=== PATIENT | female | born 1965 | race Two or more races ===

== ENCOUNTER 2017-01-02 06:58 | Day surgery (SDC) | payer OTHER ==
[~2017-01-02] VITALS: Ht 147.3 cm; Wt 71.5 kg
[~2017-01-02 06:58] MED LIST: ALBU8.5H3 INH; ASPI81TA3 PO; ATOR10TA65 PO; GLIM4TAB PO; IBUP-1542 PO; LISI2.5T59 PO; METF-405 PO; OLOP2.5D5 OP; SITA50TA2 PO
[2017-01-02 08:08] VITALS: Ht 147.3 cm; Wt 71.5 kg
[2017-01-02] MEDS ORDERED: IBUP800T25 PO (08:21)
[2017-01-02] MEDS ORDERED: SITA50TA2 PO (08:21)
[2017-01-02] MEDS ORDERED: CILO50TA PO (08:21)
[2017-01-02] MEDS ORDERED: OMEP40CA6 PO (08:21)
[2017-01-02] MEDS ORDERED: METF500T4 PO (08:21)
[2017-01-02] MEDS ORDERED: AZEL6DRO2 BOTH EYES (08:21)
[2017-01-02 08:38] VITALS: BP 110/72; PULSE 85; RESP 16
[2017-01-02] MEDS ORDERED: FENTAnyl 50 MCG/ML VIAL ONE (09:19)
[2017-01-02] MEDS ORDERED: MIDAZOLAM 1 MG/ML 2 ML INJ ONE ×2 (09:19)
[2017-01-02 09:41] VITALS: BP 100/64; PULSE 82
--- NOTE | 2017-01-02 10:34 | GILP ---
DATE OF PROCEDURE: 01/02/2017 NAME OF PROCEDURES: 1. Esophagogastroduodenoscopy and biopsy. 2. Colonoscopy. SURGEON: Deirdre Evans MD PREOPERATIVE DIAGNOSES: 1. Abdominal pain. 2. Chronic heartburn. 3. Screening colonoscopy. POSTOPERATIVE DIAGNOSES: 1. Gastroesophageal reflux disease. 2. Gastritis with erosions. 3. Gastric mucosal biopsies were taken for Helicobacter pylori test. 4. Colonoscopy all the way to the cecum. 5. Diverticulosis of the colon. 6. Internal hemorrhoids. 7. No colon neoplasm was identified. INDICATION FOR THE PROCEDURE: Ms. Judy Arguelles is a 51-year-old female patient who had upper abd ominal pain and chronic heartburn, not responding to therapy. She also needed screening colonoscopy . The procedures and possible complications are well explained to the patient, she understood and cons ented to the procedure. DESCRIPTION OF PROCEDURE: Under the influence of fentanyl and Versed, the gastroscope was carefully introduced into the esophagus and under direct vision, it was advanced to the stomach and through t he pylorus into the duodenal bulb and descending duodenum. FINDINGS: ESOPHAGUS: The patient had gastroesophageal reflux disease. STOMACH: She had gastritis with erosions. Gastric mucosal biopsies were taken for H. pylori test. DUODENUM: Normal. The colonoscope was carefully introduced in the rectum and under direct vision, it was advanced all the way to the cecum. FINDINGS: The patient had diverticulosis of the colon. She also had internal hemorrhoids. No colo n neoplasm was identified. She tolerated the procedures very well and there was no complication from the procedures. At the en d of the procedures, she was awake with stable vital signs and she was discharged home to the care o f her family. IMPRESSION: Please see postoperative diagnoses. PLAN: 1. Omeprazole 40 mg p.o. q.a.m. 2. Await H. pylori test report. 3. High fiber diet. 4. Next screening colonoscopy in 10 years. Dictated By: DEIRDRE TOPETE/JENNYFER Conf#: [id number] DID#: [id number] CC: DEIRDRE EVANS MD;*EndCC*
== END 2017-01-02 11:50 | disposition home or self-care (01) ==
LOC: GIL 06:58
PROVIDERS: ATTEND Internal Medicine Gastroenterology
DX: Z12.11 Encounter for screening for malignant neoplasm of colon (principal); K21.9 Gastro-esophageal reflux disease without esophagitis; K29.60 Other gastritis without bleeding; K57.90 Diverticulosis of intestine, part unspecified, without perforation or abscess without bleeding; K64.8 Other hemorrhoids; E11.9 Type 2 diabetes mellitus without complications
CPT/HCPCS: 43239; 45378; 82962; 87081; J2250; J3010; Z7610

== ENCOUNTER 2017-03-28 02:44 | Inpatient (IN) | payer OTHER ==
[2017-03-28] VITALS (10 sets, daily range): BP systolic 117–129; BP diastolic 61–67; PULSE 78–94; RESP 16–20; Ht 149.9 cm; Wt 73.2 kg
[~2017-03-28] VITALS: Ht 149.9 cm; Wt 73.2 kg
[~2017-03-28 02:44] MED LIST changes: +AZEL6DRO2 BOTH EYES; +CILO50TA PO; -GLIM4TAB PO; -IBUP-1542 PO; +IBUP800T25 PO; -LISI2.5T59 PO; -METF-405 PO; +METF500T4 PO; -OLOP2.5D5 OP; +OMEP40CA6 PO
[2017-03-28] MEDS ORDERED: ALBU8.5H3 INH (05:12)
[2017-03-28] MEDS ORDERED: METF1000 PO (05:12)
[2017-03-28] MEDS ORDERED: SITA50TA2 PO (05:12)
[2017-03-28] MEDS ORDERED: OMEP20CA16 PO (05:12)
[2017-03-28] MEDS ORDERED: CILO100T PO (05:12)
[2017-03-28] MEDS ORDERED: ASPI-664 PO (05:12)
[2017-03-28] MEDS ORDERED: [UNRECOGNIZED DRUG - REMARK] BOTH EYES (05:12)
[2017-03-28] MEDS ORDERED: ONDANSETRON 4 MG INJ IV PRN (07:30)
[2017-03-28] MEDS ORDERED: NACL 0.9% 3 ML SYG IV SCH (07:30)
--- NOTE | 2017-03-28 08:16 | HP ---
Date/Time of Note Date/Time of Note DATE: 03/28/17 TIME: 08:01 Assessment/Plan VTE Prophylaxis VTE Prophylaxis Intervention: SCD's Lines/Catheters IV [facility]ter Type [facility]from [facility]): Saline Lock Urinary Cath still in place: No Assessment/Plan Chief Complaint/Hosp Course This is a 51-year-old female being admitted to the telemetry floor for: #1 left-sided weakness/facial numbness: Rule out stroke versus other cerebrovascular etiology versus complex migraine. CAT scan of the head was unremarkable at the outside facility. The current time will order an MRI of the brain, carotid Dopplers. Will consult neurology. Further imaging studies as per neurology recommendations. Continue aspirin. PT/OT evaluation. Will check a bedside swallow eval and then resume low carbohydrate diet. #2 diabetes mellitus: Check swallow eval. And then resume low carbohydrate diet. Continue insulin sliding scale. Hold oral home medication. #3 anemia: Hemoglobin of 9.9 with an MCV of 70. Will check iron studies. Patient likely will need iron supplements on discharge. #4 peripheral vascular disease: Resume cilostazol when patient resumes diet. #5 DVT and GI prophylaxis: SCDs, Protonix Further treatment strategy as per the clinical course Problems: HPI/ROS Admit Date/Time Admit Date/Time Mar 28, 2017 at 04:05 Hx of Present Illness Chief complaint: Left-sided weakness and facial numbness 3 days This is a 51-year-old female who presents to the ED at the outside facility with left-sided weakness 3 days. Patient also states that she had left-sided facial numbness as well. She states that this is gradually worsened over the last 3 days. She denies any chest pain or shortness of breath denies any fevers or vomiting. In the past she had a TIA. Patient also states that she had a headache. Allergies: NKDA Medications: Albuterol inhaler aspirin Cilostazol Claritin eyedrops Metformin Sitagliptin ROS Const: As per HPI Eyes : No pain discharge or redness or change in visual acuity ENT: No pain, sore throat, congestion, congestion, dysphagia or discharge Respiratory: No shortness of breath, cough, sputum, wheezing, or pleuritic pain Cardiovascular: No chest pain, palpitation, PND, or edema GI : no change in appetite, abdominal pain, nausea, vomiting, diarrhea, constipation, or change in the color his stool Genitourinary: No dysuria, hematuria, flank pain , discharge or CVA tenderness Musculoskeletal: No joint pain, back pain, neck pain, restricted range of motion in neck or joints Skin: No rash, bruising or hives Neuro: As per HPI Endocrine: No polyuria, polydipsia, temperature intolerance Psych: No hallucination, depression, anxiety or suicidal ideation PMH/Family/Social Past Medical History Arthritis, diabetes mellitus, previous TIA, PVD Past Surgical History Past Surgical Hx: no surgical history Family History Significant Family History: heart disease, diabetes Social History Alcohol Use: none Smoking Status: Never smoker Drug Use: none Exam/Review of Systems Vital Signs Vitals Vital Signs Date Time Temp Pulse Resp B/P Pulse Ox O2 Delivery O2 Flow Rate FiO2 03/28/17 07:45 98.1 87 18 122/66 98 Exam Exam General: Patient is a obese female laying in bed in no acute distress HEENT: Atraumatic, normocephalic. The pupils are equal, round and reactive. Extraocular motor are intact Neck: Supple with full range of motion. No rigidity or meningismus Chest: Nontender Lungs: Clear to auscultation bilaterally no crackles rales or wheezing Heart: Normal S1-S2, Regular rhythm and rate. No murmur, S3, or S4 Abdomen: Soft , nontender, nondistended , bowel sounds are present. No guarding no rebound tenderness , No masses or organomegaly. No costovertebral temporal angle mass Extremities: Normal to inspection, no edema no cyanosis Neurologic: Normal mental status, speech normal, cranial nerves II through XII are intact, motor and sensory are intact, mild weakness of the left side of the bilateral upper and lower extremities compared to the right, Additional Comments Pertinent laboratory findings from transfer facility: CAT scan: Was unremarkable Hemoglobin 9.9 with an MCV of 70 Please see transfer documentation for all other laboratory and imaging reports. Medications Medications Current Medications Sodium Chloride (NS) 1,000 ml @ 70 mls/hr [id number] IV ; Start 03/28/17 at 07:27 Ondansetron HCl (Zofran Inj) 4 mg Q6H PRN IV NAUSEA AND/OR VOMITING; Start at 07:30 Pantoprazole (Protonix Iv) 40 mg DAILY@06 IV ; Start 03/28/17 at 08:00 DIANA BELTRE Mar 28, 2017 08:16 DIANA BELTRE Mar 28, 2017 08:16
[2017-03-28] MEDS: SOD CHLORIDE 0.9% 1,000 ML IV SCH ×2 (10:19→20:46)
[2017-03-28] MEDS: PANTOPRAZOLE 40 MG INJ IV SCH (10:19)
[2017-03-28] MEDS ORDERED: NAPR-260 PO (10:37)
[2017-03-28] MEDS ORDERED: NIT4 SL (10:39)
--- NOTE | 2017-03-28 10:47 | CONS ---
Date/Time of Note Date/Time of Note DATE: 03/28/17 TIME: 10:39 Assessment/Plan Assessment/Plan Chief Complaint/Hosp Course 51 yo female with hx of DM, HTN, Peripheral vascular disease presenting with left sided numbness over 3 days admitted for ischemic work up. Recommendations: MRI Brain without contrast MRA Head w/o contrast, Duplex ordered continue home medications aspirin and cilostazol check FLP, HBA1C for optimization of secondary stroke risk factors continue tele monitoring ECHO w bubble study anemia work up in progress DVT ppx will request Dr. Hunt to follow over weekend Problems: Consultation Date/Type/Reason Admit Date/Time Mar 28, 2017 at 04:05 Date of Consultation: Mar 28, 2017 Type of Consultation: Neurology Reason for Consultation eval for CVA Referring Provider: DIANA BELTRE Hx of Present Illness 51 year old right handed female with history of diabetes, HTN, peripheral vascular disease currently taking aspirin and cilostazol presents with left sided numbness sensation involving left face arm and leg over the past 3 days. Her symptoms initially involved left side of her face, gradually experienced numbness to her left arm and left leg for the past 2 days. She c/o mild left sided DOOLEY, no visual issues, no dysarthria, no focal weakness, no loss of coordination or vertigo. She has had similar symptoms over 2 years ago that resolved, was dx with a TIA, denies prior hx of CVA. She was tx from [facility] for further evaluation, CTH negative. left sided numbness headache Past Medical History as per HPI Past Surgical History Past Surgical Hx: no surgical history Family History Significant Family History: heart disease, diabetes, hypertension Social History Alcohol Use: none Smoking Status: Never smoker Drug Use: none Exam/Review of Systems Vital Signs Vitals Vital Signs Date Time Temp Pulse Resp B/P Pulse Ox O2 Delivery O2 Flow Rate FiO2 03/28/17 08:27 93 03/28/17 07:45 98.1 18 122/66 98 Exam Constitutional: alert, oriented, well developed Cardiovascular: nl pulses, regular rate and rhythm Neurological: CAKE FROSTER II-XII intact, DTR's symmetric (mild right NLF flattening per daughter this is old (seen on prior pictures of patient as well)), nl mental status, nl speech, nl strength Medications Medications Current Medications Sodium Chloride (NS) 1,000 ml @ 70 mls/hr [id number] IV Last administered on 03/28 10:19; Admin Dose 70 MLS/HR; Start 03/28/17 at 07:27 Ondansetron HCl (Zofran Inj) 4 mg Q6H PRN IV NAUSEA AND/OR VOMITING; Start at 07:30 Pantoprazole (Protonix Iv) 40 mg DAILY@06 IV Last administered on 03/28/17 10: 19; Admin Dose 40 MG; Start 03/28/17 at 08:00 ADRIANO MARTINEZ MD Mar 28, 2017 10:47
[2017-03-28 11:10] LABS: IRON 20 ug/dl (35-150)
[2017-03-28 11:19] LABS: TOTAL IRON BINDING CAPACITY 446 ug/dl (241-421)
[2017-03-28 12:30] LABS: FERRITIN 4.8 ng/ml (11.1-264.0)
--- NOTE | 2017-03-28 13:26 | RADRPT ---
PROCEDURE: US carotid arteries. CLINICAL INDICATION: Dizziness. Left side weakness. TECHNIQUE: Multiple sonographic images of the carotid arteries and vertebral arteries were obtaine d utilizing ozuna scale, duplex, and color-flow imaging. The images were reviewed on a PACS workstati on. COMPARISON: No prior studies are available for comparison. FINDINGS: Evaluation of the right carotid bifurcation region reveals mild atherosclerotic disease. Evaluation of the left carotid bifurcation region reveals mild atherosclerotic disease. There is antegrade flow within the vertebral arteries bilaterally. RIGHT CAROTID MEASUREMENTS: Common Carotid [id number] (cm/sec) Internal Carotid Artery 102 (cm/sec) External Carotid Artery 58 (cm/sec) Vertebral Artery 39 (cm/sec) Internal Carotid/Common Carotid1.3 LEFT CAROTID MEASUREMENTS: Common Carotid [id number] (cm/sec) Internal Carotid Artery 64 (cm/sec) External Carotid Artery 48 (cm/sec) Vertebral Artery 44 (cm/sec) Internal Carotid/Common Carotid0 point a Validated velocity measurements with angiographic measurements. Velocity criteria are extrapolated f rom diameter data as defined by the Society of Radiologists in Ultrasound Consensus Conference. Radi ology 2003; 229;340-346. This study does indirectly reference the measurement of the distal ICA emma meter as the denominator for stenosis measurement. IMPRESSION: 1. Less than 50% stenosis bilaterally in the internal carotid arteries. 2. Normal antegrade flow in the vertebral arteries bilaterally. RPTAT: QQ SRU Consensus Conference Criteria for the Diagnosis of Carotid Artery Stenosis* Degree of Stenosis, % ICA PSV, cm/sec Plaque Estimate, % ICA/CCA PSV Ratio Normal <125 None <2.0 <50 <125 <50 <2.0 50 69 125-230 >50 2.0-4.0 >70 but less than near occlusion >230 >50 <4.0 Near occlusion High, low, or undetectable Visible Variable Total occlusion Undetectable Visible, no detectable lumen Not applicable *Cartoid artery stenosis: ozuna-scale and Doppler US diagnosis. Society of Radiologists in Ultrasound Consensus Conference. Radiology 2003; 229: 340-346 .Kemar Cerrato MD, Date Time Electronically viewed and signed by .Kemar Cerrato MD, on 03/28/2017 13:25 .R/
[2017-03-28] MEDS ORDERED: Discontinue Glyburide, Glipizide, and/or Glimepiride prior to starting Insulin XX ONE (13:30)
[2017-03-28] MEDS ORDERED: HYPOGLYCEMIA PROTOCOL when Glucose is <70 mg/dL or symptomatic <90 mg/dL. XX ONE (13:30)
[2017-03-28] MEDS ORDERED: GLUCOSE GEL 15 GRAM TUBE BUCCAL PRN (14:00)
[2017-03-28] MEDS ORDERED: GLUCOSE GEL 15 GRAM TUBE PO PRN ×2 (14:00)
[2017-03-28] MEDS ORDERED: DEXTROSE 50% 50 ML SYRINGE IV PRN ×2 (14:00)
[2017-03-28] MEDS ORDERED: GLUCAGON 1 MG INJ IM PRN (14:00)
[2017-03-28] MEDS ORDERED: AZELASTINE 0.05% 6 ML OPH BOTH EYES SCH (14:30)
[2017-03-28] MEDS: ASPIRIN (EC) 81 MG TAB PO SCH (16:52)
[2017-03-28] MEDS: CILOSTAZOL 100 MG TAB PO SCH (16:52)
--- NOTE | 2017-03-28 17:07 | RADRPT ---
Echocardiogram Report Patient Name: SHARYN BARROSO Gender: Female Date: 1965 Study Date: 28-Mar-2017 Peanut Vendor: [facility] Location: 5547 Ref. Physician: DIANA BELTRE Quality: Adequate Procedures: Transthoracic echocardiogram with complete 2D, M-Mode, and doppler examination. Indications: Stroke like symptoms. 2D/M Mode Doppler Measurement Value Normal Ranges Measurement Value Normal Ranges LVIDd 2D 4.6 3.5 - 5.6 cm AV Peak Elias 1.5 m/sec LVIDs 2D 3.2 2.1 - 4.1 cm AV Peak PG 9.0 mmHg FS 2D 30.3 % LVOT Peak Elias 1.1 m/sec LVPWd 2D 1.3 0.6 - 1.1 cm LVOT Peak PG 5.0 mmHg IVSd 2D 1.3 0.6 - 1.1 cm MV E Peak Elias 0.8 m/sec IVS/LVPW 2D 1.0 MV A Peak Elias 0.8 m/sec AoR Diam 2D 2.6 2.0 - 3.7 cm MV E/A 1.0 LA/Ao 2D 2 0 - 1 MV Decel Time 162 msec EDV 2D 96.1 cm3 MV E/A 1.0 ESV 2D 32.5 cm3 TR Peak Elias 2.5 m/sec LA Dimen 2D 4.2 2.3 - 4.0 cm TR Peak PG 25.0 mmHg RVSP 28.0 mmHg Findings Left Ventricle: Normal left ventricular systolic function. Normal left ventricular cavity size. Mild concentric left ventricular hypertrophy. Ejection fraction is visually estimated at 65 %. Tissue Doppler/Mitral Doppler indices are consistent with impaired relaxation (Stage I diastolic dysfunction). Right Ventricle: Normal right ventricular size. Normal right ventricular systolic function. Left Atrium: There is mild enlargement of left atrium. Right Atrium: The right atrium is normal in size. Mitral Valve: Mild mitral leaflet calcification. Mild mitral annular calcification. Trace mitral regurgitation. Aortic Valve: No significant aortic stenosis or insufficiency. Aortic sclerosis without stenosis. Aortic cusps appear mildly calcified. Tricuspid Valve: Normal appearance of the tricuspid valve. Estimated peak PA systolic pressure 28 mmHg. There is mild tricuspid regurgitation. Pulmonic Valve: Pulmonic valve not well visualized. There is trace pulmonic regurgitation. Pericardium: Normal pericardium with no significant pericardial effusion. Aorta: Normal aortic root. IVC: Normal size and normal respiratory collapse consistent with normal right atrial pressure. Conclusions Normal left ventricular systolic function. Normal left ventricular cavity size. Mild concentric left ventricular hypertrophy. Ejection fraction is visually estimated at 65 %. Tissue Doppler/Mitral Doppler indices are consistent with impaired relaxation (Stage I diastolic dysfunction). No significant valvular stenosis or regurgitation seen. Estimated peak PA systolic pressure 28 mmHg based on RA pressure of 3 mmHg. Electronically Signed By: Geovanny Castillo 28-Mar-2017 17:06: Patient Name: SHARYN BARROSO Study Date: 28-Mar-2017 [id number]
[2017-03-28] MEDS: AZELASTINE 0.05% 6 ML OPH BOTH EYES SCH ×2 (17:11→23:58)
[2017-03-28] MEDS: INSULIN ASPART [NOVOLOG] 3 ML PEN SC SCH ×2 (17:12→21:00)
[2017-03-28] MEDS ORDERED: ATORVASTATIN 10 MG TAB PO SCH (21:00)
[2017-03-29] VITALS (10 sets, daily range): BP systolic 109–132; BP diastolic 60–69; PULSE 78–89; RESP 16–18
[2017-03-29] MEDS ORDERED: ACCU-CHEK XX SCH (02:00)
[2017-03-29] MEDS: PANTOPRAZOLE 40 MG INJ IV SCH (06:27)
[2017-03-29 07:57] LABS: ADD SCAN DIFF NO
[2017-03-29 07:59] LABS: BASOPHIL # 0.1 10^3/ul (0.0-0.1); BASOPHILS % 0.9 % (0.0-2.0); EOSINOPHILS # 0.2 10^3/ul (0.0-0.5); EOSINOPHILS % 2.8 % (0.0-7.0); HEMATOCRIT 32.1 % (37.0-47.0); HEMOGLOBIN 9.9 g/dl (12.0-16.0); LYMPHOCYTES # 1.6 10^3/ul (0.8-2.9); LYMPHOCYTES % 24.1 % (15.0-51.0); MEAN CORPUSCULAR HEMOGLOBIN 22.5 pg (29.0-33.0); MEAN CORPUSCULAR HGB CONC 30.8 g/dl (32.0-37.0); MONOCYTE # 0.5 10^3/ul (0.3-0.9); MONOCYTES % 7.3 % (0.0-11.0); NEUTROPHIL # 4.4 10^3/ul (1.6-7.5); NEUTROPHILS % 64.5 % (39.0-77.0); PLATELET COUNT 310 10^3/UL (140-415); RED CELL DISTRIBUTION WIDTH 16.4 % (11.5-14.5); WHITE BLOOD COUNT 6.8 10^3/ul (4.8-10.8)
[2017-03-29] MEDS: SOD CHLORIDE 0.9% 1,000 ML IV SCH (07:59)
[2017-03-29] MEDS: INSULIN ASPART [NOVOLOG] 3 ML PEN SC SCH ×2 (08:00→11:14)
[2017-03-29] MEDS: ASPIRIN (EC) 81 MG TAB PO SCH (08:15)
[2017-03-29] MEDS: AZELASTINE 0.05% 6 ML OPH BOTH EYES SCH (08:15)
[2017-03-29] MEDS: CILOSTAZOL 100 MG TAB PO SCH (08:15)
[2017-03-29] MEDS ORDERED: ACETAMINOPHEN 325 MG TAB PO PRN (08:30)
[2017-03-29 08:33] LABS: ALBUMIN 4.2 g/dl (3.3-4.9); ALBUMIN/GLOBULIN RATIO 1.23; BILIRUBIN,INDIRECT 0.1 mg/dl (0-1.1); BILIRUBIN,TOTAL 0.1 mg/dl (0.2-1.3); CREATININE 0.48 mg/dl (0.44-1.00); POTASSIUM 3.7 mmol/L (3.5-5.1); TOTAL PROTEIN 7.6 g/dl (6.1-8.1)
[2017-03-29 08:42] LABS: MAGNESIUM 2.1 mg/dl (1.7-2.5)
--- NOTE | 2017-03-29 09:09 | RADRPT ---
PROCEDURE: MRI Brain without contrast. CLINICAL INDICATION: Left-sided weakness TECHNIQUE: Multiplanar MRI of the brain without contrast was performed on a 3.0 T scanner with the following sequences obtained: T1-weighted, T2-weighted/FLAIR, diffusion weighted (with ADC map), GR E. COMPARISON: None available FINDINGS: No acute/recent ischemic infarction or intracranial hemorrhage / blood degradation products are iden tified. No extra-axial fluid collection is seen. There is no mass effect. No midline shift is identified. The ventricles and sulci are within normal limits for size and configuration. The signal intensity is unremarkable throughout the cerebrum, brainstem and cerebellum. Flow voids are identified in the proximal intracranial arteries and dural sinuses suggesting patency . The mastoid air cells and paranasal sinuses are grossly clear. IMPRESSION: 1. No evidence of acute intracranial pathology. 2. Unremarkable noncontrast MRI of the brain. RPTAT: VV .Rolando Mckinney MD, MD Date Time Electronically viewed and signed by .Rolando Mckinney MD, on 03/29/2017 09:08 .O/
--- NOTE | 2017-03-29 09:14 | RADRPT ---
PROCEDURE: MRA brain without contrast CLINICAL INDICATION: Left-sided weakness TECHNIQUE: 3-D [id number] intracranial MRA was performed on a 3.0T scanner. Rotational MIP brandon ges were reformatted. The source images were also reviewed. COMPARISON: None available FINDINGS: The bilateral internal carotid arteries are patent. The bilateral middle and anterior cerebral salome dottie are patent. The bilateral vertebral arteries, basilar artery, as well as the bilateral posteri or cerebral arteries are patent. No aneurysm or vascular malformation is identified. IMPRESSION: Unremarkable MRA of the brain. RPTAT: VV .Rolando Mckinney MD, Date Time Electronically viewed and signed by .Rolando Mckinney MD, on 03/29/2017 09:13 .O/
--- NOTE | 2017-03-29 15:32 | PDOCDIS ---
Discharge Instructions DIAGNOSIS Discharge Diagnosis Transient left-sided weakness. CONDITION Patient Condition: Stable HOME CARE INSTRUCTIONS: Special Diet: DIABETIC DIET. FOLLOW UP/APPOINTMENTS Follow-up Plan Yung Caro MD Specialty: Internal Medicine Office Address: [address] [place] [address] [place], [place] [id number] Office OTHER ORDERS: Other Orders: 1. Carbohydrate controlled, low-cholesterol diet. 2. Resume activities as tolerated. 3. Follow-up with your primary care physician in 7 days. If you do not have a primary care physician, please call Dr. Yung Caro's office. 4. Please call 911 or go to the nearest emergency room if you have chest pain, sudden onset of focal weakness or sudden onset of speech disturbances. KERMIT ANGELES NP Mar 29, 2017 15:31
[2017-03-29] MEDS ORDERED: FER325 PO (15:36)
[2017-03-29] MEDS ORDERED: ATOR40TA68 PO (15:37)
--- NOTE | 2017-03-29 16:04 | DS ---
Date/Time of Note Date/Time of Note DATE: 03/29/17 TIME: 16:02 Discharge Summary Admission/Discharge Info Admit Date/Time Mar 28, 2017 at 04:05 Discharge Date/Time Discharge Diagnosis 1. Transient left-sided weakness. ?RIND [reversible ischemic neurologic deficit] . 2. Essential hypertension. 3. Type 2 diabetes mellitus 4. Microcytic, hypochromic anemia. 5. Iron deficiency. 6. Peripheral vascular disease. Patient Condition: Stable Consults 1. Karley Lopes MD, Neurology. Procedures Brain MRI IMPRESSION: 1. No evidence of acute intracranial pathology. 2. Unremarkable noncontrast MRI of the brain. Brain MRI with MRA IMPRESSION: Unremarkable MRA of the brain. Carotid Doppler Study IMPRESSION: 1. Less than 50% stenosis bilaterally in the internal carotid arteries. 2. Normal antegrade flow in the vertebral arteries bilaterally. 2D Echocardiogram Conclusions Normal left ventricular systolic function. Normal left ventricular cavity size. Mild concentric left ventricular hypertrophy. Ejection fraction is visually estimated at 65 %. Tissue Doppler/Mitral Doppler indices are consistent with impaired relaxation (Stage I diastolic dysfunction). No significant valvular stenosis or regurgitation seen. Estimated peak PA systolic pressure 28 mmHg based on RA pressure of 3 mmHg. Hx of Present Illness Chief complaint: Left-sided weakness and facial numbness 3 days This is a 51-year-old female who presents to the ED at the outside facility with left-sided weakness 3 days. Patient also states that she had left-sided facial numbness as well. She states that this is gradually worsened over the last 3 days. She denies any chest pain or shortness of breath denies any fevers or vomiting. In the past she had a TIA. Patient also states that she had a headache. Allergies: NKDA Medications: Albuterol inhaler aspirin Cilostazol Claritin eyedrops Metformin Sitagliptin Hospital Course The patient was admitted to inpatient telemetry floor. A neurology consult was obtained. The patient was maintained on dual antiplatelet therapy. The patient underwent an brain MRI and brain MRI was negative. The patient's carotid Doppler study was showing a 50% stenosis bilaterally in the internal carotid arteries. However, the patient's brain MRA which is a more sensitive test was showing no evidence of carotid artery stenosis. The patient underwent a 2D echocardiogram that showed preserved left ventricular ejection fraction. The patient's symptoms could have been most probably secondary to TIA versus RIND. The patient will be continued on dual antiplatelet therapy. The patient' s statin dosing will be increased. The patient has diabetes mellitus, which is well controlled with a hemoglobin A1c of 6.2. The patient has been on sliding scale insulin. Patient's blood sugars well controlled Patient was seen and evaluated by physical therapy. Physical therapy recommended no skilled physical therapy needs at this time. The patient has underlying essential hypertension. She was maintained on antihypertensives for the same. The patient's underlying diabetes mellitus. The patient was noticed to have microcytic, hypochromic anemia. The patient was noticed to have significant iron deficiency. The patient will be started on iron supplements upon discharge. Patient has underlying peripheral vascular disease. The patient was maintained on dual antiplatelet therapy for the same. Patient had a stable hospital course. The patient is stable to be discharged home. Discharge Instructions 1. Carbohydrate controlled, low-cholesterol diet. 2. Resume activities as tolerated. 3. Follow-up with your primary care physician in 7 days. If you do not have a primary care physician, please call Dr. Yung Caro's office. 4. Please call 911 or go to the nearest emergency room if you have chest pain, sudden onset of focal weakness or sudden onset of speech disturbances. The patient verbalized understanding of her discharge instructions. I would like to thank for seeing the patient and providing clinical recommendations. Case discussed with Dr. Lee. Home Meds Active Scripts Atorvastatin* (Atorvastatin*) 40 Mg Tablet, 40 MG PO QHS, #30 TAB Prov:KERMIT ANGELES [employer]ISHER 03/29/17 Ferrous Sulfate* (Ferrous Sulfate*) 325 Mg Tabec, 325 MG PO TID for 30 Days, TAB Prov:KERMIT ANGELES [employer] FINISHER 03/29/17 Reported Medications Nitroglycerin (Nitrostat) 0.4 Mg Subl, 0.4 MG SL Q5MIN Y for CHEST PAIN, BOTTLE 03/28/17 Albuterol Sulfate* (Proair HFA*) 8.5 Gm Hfa.aer.ad, 2 PUFF INH Q6 Y for WHEEZING , #1 INHALER 03/28/17 [Ra Antihistamine] No Conflict Check, 0.02 BOTH EYES BID 03/28/17 Cilostazol* (Cilostazol*) 100 Mg Tablet, 50 MG PO BID, TAB 03/28/17 Sitagliptin* (Januvia*) 50 Mg Tablet, 50 MG PO DAILY, #30 TAB 03/28/17 Metformin Hcl* (Metformin Hcl*) 1,000 Mg Tablet, 1000 MG PO BID WITH MEALS, #30 TAB 03/28/17 Azelastine Hcl* (Azelastine Hcl*) 0.05%-6 Ml Opht Drops, 0.05 DROP BOTH EYES BID , #1 EA 01/02/17 Cilostazol* (Cilostazol*) 50 Mg Tablet, 50 MG PO DAILY, TAB 01/02/17 Omeprazole* (Omeprazole*) 40 Mg Capsule.dr, 40 MG PO DAILY, #30 CAP 01/02/17 Aspirin (Aspirin) 81 Mg Chew, 81 MG PO DAILY, TAB.CHEW 04/05/16 Albuterol Sulfate* (Proair HFA*) 8.5 Gm Hfa.aer.ad, 1 PUFF INH Q6H Y for WHEEZING AND SOB, #1 INHALER 04/05/16 Discontinued Reported Medications Naproxen* (Naprosyn*) 500 Mg Tablet, 500 MG PO BID, TAB 03/28/17 Aspirin* (Aspirin* EC) 81 Mg Tablet.dr, 81 MG PO DAILY, TAB 03/28/17 Omeprazole* (Omeprazole*) 20 Mg Capsule.dr, 20 MG PO DAILY, #30 CAP 03/28/17 Ibuprofen* (Ibuprofen*) 800 Mg Tab, 800 MG PO Q8 Y for PAIN, TAB 01/02/17 Metformin* (Glucophage*) 500 Mg Tab, 500 MG PO WITH MEALS, #90 TAB 01/02/17 Sitagliptin* (Januvia*) 50 Mg Tablet, 50 MG PO DAILY, #30 TAB 01/02/17 Atorvastatin Calcium (Atorvastatin Calcium) 10 Mg Tablet, 10 MG PO QHS, #30 TAB 04/05/16 Follow-up Plan Follow-up with your primary care physician 1 week. Primary Care Provider Laurence Segundo MD Time spent on discharge: > 30 minutes Pending Labs Laboratory Tests Test 03/28/17 17:11 03/28/17 20:48 03/29/17 07:34 03/29/17 08:00 Bedside Glucose 107mg/dL (70-220) 104mg/dL (70-220) 120mg/dL (70-220) White Blood Count 6.810^3/ul (4.8-10.8) Red Blood Count 4.4010^6/ul (4.20-5.40) Hemoglobin 9.9g/dl (12.0-16.0) Hematocrit 32.1% (37.0-47.0) Mean Corpuscular Volume 73.0fl (82.0-101.0) Mean Corpuscular Hemoglobin 22.5pg (29.0-33.0) Mean Corpuscular Hemoglobin Concent 30.8g/dl (32.0-37.0) Red Cell Distribution Width 16.4% (11.5-14.5) Platelet Count 76009^3/UL (140-415) Mean Platelet Volume 9.0fl (7.4-10.4) Neutrophils % 64.5% (39.0-77.0) Lymphocytes % 24.1% (15.0-51.0) Monocytes % 7.3% (0.0-11.0) Eosinophils % 2.8% (0.0-7.0) Basophils % 0.9% (0.0-2.0) Nucleated Red Blood Cells % 0.0/100WBC (0.0-0.0) Neutrophils # 4.410^3/ul (1.6-7.5) Lymphocytes # 1.610^3/ul (0.8-2.9) Monocytes # 0.510^3/ul (0.3-0.9) Eosinophils # 0.210^3/ul (0.0-0.5) Basophils # 0.110^3/ul (0.0-0.1) Nucleated Red Blood Cells # 0.010^3/ul (0.0-0.0) Sodium Level 135mmol/L (135-144) Potassium Level 3.7mmol/L (3.5-5.1) Chloride Level 102mmol/L (97-110) Carbon Dioxide Level 30mmol/L (21-31) Anion Gap 7 (8-16) Blood Urea Nitrogen 9mg/dl (7-20) Creatinine 0.48mg/dl (0.44-1.00) Glucose Level 107mg/dl (70-220) Calcium Level 9.0mg/dl (8.4-10.2) Phosphorus Level 4.0mg/dl (2.5-4.9) Magnesium Level 2.1mg/dl (1.7-2.5) Total Bilirubin 0.1mg/dl (0.2-1.3) Direct Bilirubin 0.00mg/dl (0.00-0.20) Indirect Bilirubin 0.1mg/dl (0-1.1) Aspartate Amino Transf (AST/SGOT) 28IU/L (15-46) Alanine Aminotransferase (ALT/SGPT) 41IU/L (13-69) Alkaline Phosphatase 115IU/L (42-121) Total Protein 7.6g/dl (6.1-8.1) Albumin 4.2g/dl (3.3-4.9) Globulin 3.40g/dl (1.3-3.2) Albumin/Globulin Ratio 1.23 Test 03/29/17 11:14 Bedside Glucose 108mg/dL (70-220) KERMIT ANGELES NP Mar 29, 2017 16:03
[2017-03-30] MEDS ORDERED: PANTOPRAZOLE (EC) 40 MG TAB PO SCH (06:00)
== END 2017-03-29 16:46 | disposition home or self-care (01) | DRG 65 ==
LOC: MS4 04:05
PROVIDERS: ADMIT Family Medicine; ATTEND Family Medicine
DX: I63.9 Cerebral infarction, unspecified (principal); G81.94 Hemiplegia, unspecified affecting left nondominant side; I10 Essential (primary) hypertension; E11.9 Type 2 diabetes mellitus without complications; D50.9 Iron deficiency anemia, unspecified; I73.9 Peripheral vascular disease, unspecified; R29.810 Facial weakness; Z79.4 Long term (current) use of insulin; Z79.82 Long term (current) use of aspirin
CPT/HCPCS: 70544; 70551; 80053; 80061; 82728; 82962; 83036; 83540; 83735; 84100; 84466; 85025; 92610; 93306; 93880; 97161; C9113; J1815; J7030